=== PATIENT | male | born 1970 | race Caucasian/White ===

== ENCOUNTER 2021-09-11 20:00 | Inpatient (IN) | payer OTHER ==
[~2021-09-11] VITALS: Ht 177.8 cm; Wt 79.4 kg
--- NOTE | ~2021-09-11 | H ---
[facility] [place] [address] [place] [address] HISTORY AND PHYSICAL Name: JOSÉ MIGUEL DUNNE Room #: 150-1 ADM IN M.R.#: [id number] Admission: 09/11/21 Attend Phys: Castillo Solis MD, Discharge: Date of : 68 Report #: [id number] THIS REPORT FOR: cc: FAM - No family physician/PCP FAM - No family physician/PCP Castillo Solis MD [facility] ~ DATE OF SERVICE: 09/11/2021 HISTORY OF PRESENT ILLNESS: The patient is a 51-year-old male who was transferred here from [facility] Emergency Room with acute inferior wall myocardial infarction, STEMI. No prior cardiac history. He is a difficult historian, but from the records from [place] and actually talking to him initially, he had onset of about 6:30 of this discomfort while at rest. He has not had any prior history of cardiac disease. He has a strong family history with a brother and father with premature disease, and he is a smoker, a pack a day patient. MEDICATIONS: He is on Ambien, Caplyta 42 mg, fluoxetine 20, omeprazole, trazodone 100 b.i.d., Ventolin inhaler and Vistaril. ALLERGIES: No known drug allergies. PAST MEDICAL HISTORY: Positive for the schizoaffective disorder, posttraumatic stress disorder, chronic depression, reflux, rotator cuff repair, neck fusion and he had ECT therapy in the past. SOCIAL HISTORY: He is disabled. He is on Medicare, Medicaid. He stated a pack a day smoker. He has children. He is not . I believe he lives independently but we have limited history here. FAMILY HISTORY: Strongly positive including father and brother with premature infarcts. REVIEW OF SYSTEMS: Essentially negative as not able to obtain. PHYSICAL EXAMINATION: GENERAL: He was alert, still a moderate amount of distress, ST segment elevation. VITAL SIGNS: Pulse is 80, blood pressure 106/70. EYES: Xanthelasma. Pharynx is clear. NECK: Shows preserved upstrokes without JVD or bruits. LUNGS: Clear anteriorly. HEART: Regular rate and rhythm, S1, S2, distant. ABDOMEN: Slightly distended, nontender. EXTREMITIES: Reveal trace of edema. Distal pulses diminished. NEUROLOGIC: Nonfocal. [facility] [address] [place] [address] HISTORY AND PHYSICAL Name: JOSÉ MIGUEL DUNNE Room #: 150-1 ADM IN M.R.#: [id number] Admission: 09/11/21 Attend Phys: Castillo Solis MD, Discharge: Date of : 68 Report #: [id number] SKIN: Warm and dry without xanthoma or ulcer. MUSCULOSKELETAL: No gross joint deformity. Generalized arthritic changes. IMPRESSION: 1. Acute inferior wall myocardial infarction. 2. History of tobacco abuse. 3. Strong family history of premature coronary disease. 4. Schizoaffective disorder/depression/post-traumatic stress disorder. 5. Presumed chronic obstructive pulmonary disease on a current inhaler. RECOMMENDATIONS AND PLAN: Aspirin, Lipitor, heparin had been given in [facility], brought here by ambulance. Proceed emergently to the catheterization lab to delineate his anatomy. Risks, benefits and alternatives were discussed. No current family present. He sees a physician in [place], [place]. By: 52 25 Castillo Solis MD, FACC /nt
[2021-09-11 23:20] VITALS: BP 127/82
[2021-09-12] MEDS ORDERED: AMBIEN 10 MG TA10 MG PO (00:06)
[2021-09-12] MEDS ORDERED: CAPLYTA42 MG PO (00:07)
[2021-09-12] MEDS ORDERED: DESYREL300 MG PO (00:08)
[2021-09-12] MEDS ORDERED: PROZAC20 M1 PO (00:08)
[2021-09-12] MEDS ORDERED: OMEPRAZOLE 20 M20 M1 PO (00:08)
[2021-09-12] MEDS ORDERED: VENTOLIN HFA 1818 GM INH (00:09)
[2021-09-12] MEDS ORDERED: VISTARIL50 MG PO (00:09)
[2021-09-12] MEDS ORDERED: NEURONTIN 300M300 M2 PO (00:10)
[2021-09-12] MEDS ORDERED: TIZANIDINE HCL4 M2 PO (00:10)
[2021-09-12] MEDS ORDERED: LEVOTHYROXINE125 MC1 PO (00:11)
[2021-09-12 06:13] VITALS: BP 109/79
[2021-09-12 06:15] LABS: ABSOLUTE NEUTROPHILS 15.7 thou/uL (1.4-8.2); BASOPHILS 0.4 % (0.0-2.0); EOSINOPHILS 0.1 % (0.0-3.0); HEMATOCRIT 47.6 % (42.0-52.0); HEMOGLOBIN 15.4 gm/dL (14.0-18.0); LYMPHOCYTES 5.9 % (24.0-44.0); MCH 26.2 pg (26.0-34.0); MCHC 32.4 g/dL (28.0-37.0); MONOCYTES 4.5 % (1.0-8.0); PLATELET COUNT 199 thou/uL (150-400); POLYS 89.1 % (36.0-66.0); RBC 5.87 mil/uL (4.50-6.00); RDW 14.9 % (10.5-14.5); WBC 17.7 thou/uL (4.0-11.0)
[2021-09-12 06:52] LABS: CALCIUM 8.6 mg/dL (8.5-10.1); CREATININE 1.2 mg/dL (0.7-1.3); POTASSIUM 4.2 mmol/L (3.5-5.1)
--- NOTE | 2021-09-12 07:12 | EKG ---
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
[2021-09-12 08:42] LABS: CHOLESTEROL 223 mg/dL (<200); HDL CHOLESTEROL 38 mg/dL (>40); LDL CHOLESTEROL 136 mg/dL (<100); TC:HDL 5.9 Ratio (Not establshd); TRIGLYCERIDE 249 mg/dL (<150); VLDL 50 mg/dL (<40)
[2021-09-12 08:59] VITALS: BP 99/51
[2021-09-12] MEDS ORDERED: EFFIENT10 MG PO ×2 (09:10→20:51)
[2021-09-12] MEDS ORDERED: LIPITOR40 MG PO (09:10)
[2021-09-12] MEDS ORDERED: BAYER CHEWABLE81 MG PO (09:10)
[2021-09-12] MEDS ORDERED: METOPROLOL SUCC25 M1 PO (09:10)
--- NOTE | 2021-09-12 13:52 | 2DMMODE ---
[facility] [place] [address] [place] [address] 2 D/M-MODE ECHOCARDIOGRAM Name: JOSÉ MIGUEL DUNNE Room #: 218-P ADM IN M.R.#: [id number] Admission: 09/11/21 Attend Phys: Castillo Solis MD, Discharge: Date of : 68 Report #: [id number] THIS REPORT FOR: cc: DAYSI - Beatrice family physician/PCP FAM - No family physician/PCP Castillo Solis MD [facility] ~ APPROVED REPORT Study performed: 09/12/2021 10:51:53 EXAM: Comprehensive 2D, Doppler, and color-flow Echocardiogram Patient Location: Bedside Room #: 218 Status: routine BSA: 1.97 HR: 83 bpm BP: 99/51 mmHg Rhythm: NSR Other Information Study Quality: Adequate Indications STEMI s/p PCI Hx: COPD, HLP. 2D Dimensions IVSd: 9.44 (7-11mm) LVOT Diam: 21.06 (18-24mm) LVDd: 42.73 mm PWd: 7.71 (7-11mm) LVDs: 33.18 (25-40mm) Left Atrium: 32.96 (27-40mm) Aortic Root: 33.35 mm Volumes Left Atrial Volume (Systole) Single Plane 4CH: 29.02 mL Single Plane 2CH: 28.45 mL Aortic Valve AoV Peak Isak.: 1.14 m/s AO Peak Gr.: 5.17 mmHg LVOT Max P.05 mmHg LVOT Max V: 1.12 m/s CALVIN Vmax: 3.44 cm2 [facility] [address] [place] [address] 2 D/M-MODE ECHOCARDIOGRAM Name: JOSÉ MIGUEL DUNNE Room #: 218-P ADM IN M.R.#: [id number] Admission: 09/11/21 Attend Phys: Castillo Solis, Discharge: Date of : 68 Report #: [id number] Mitral Valve E/A Ratio: 0.9 MV Decel. Time: 230.82 ms MV E Max Isak.: 0.64 m/s MV A Isak.: 0.75 m/s MV PHT: 66.94 ms IVRT: 65.74 ms Pulmonary Vein P Vein S: 0.40 m/s P Vein A: 0.27 m/s P Vein D: 0.27 m/s P Vein A Dur.: 107.3 msec P Vein S/D Ratio: 1.48 Tricuspid Valve RAP Estimate: 8.00 mmHg Left Ventricle The left ventricle is normal size. There is normal left ventricular wall thickness. Left ventricular systolic function is low normal mild inf base hypo LVEF is 50-55% Mild diastolic dysfunction is present (impaired relaxation pattern). Right Ventricle The right ventricle is normal size. The right ventricular systolic function is normal. Atria The left atrium size is normal. The right atrium size is normal. Aortic Valve The aortic valve is not well visualized but appears grossly normal. No aortic regurgitation is present. There is no aortic valvular stenosis. Mitral Valve The mitral valve is normal in structure. Trace mitral regurgitation. No evidence of mitral valve stenosis. Tricuspid Valve The tricuspid valve is normal in structure. There is no tricuspid valve regurgitation noted. Unable to assess PA pressure. Pulmonic Valve Pulmonic valve is not well visualized. [facility] [address] [place] [address] 2 D/M-MODE ECHOCARDIOGRAM Name: JOSÉ MIGUEL DUNNE Room #: 218-P [facility] IN M.R.#: [id number] Admission: 09/11/21 Attend Phys: Castillo Solis, Discharge: Date of : 68 Report #: [id number] Great Vessels The aortic root is normal in size. Ascending aorta is not well visualized. IVC is normal in size and collapses <50% with inspiration. Pericardium There is no pericardial effusion. <Conclusion> The left ventricle is normal size. Left ventricular systolic function is low normal mild inf base hypo LVEF is 50-55% Mild diastolic dysfunction is present (impaired relaxation pattern). The right ventricle is normal size. The left atrium size is normal. The aortic valve is not well visualized but appears grossly normal. Trace mitral regurgitation. There is no tricuspid valve regurgitation noted. Unable to assess PA pressure. The aortic root is normal in size. There is no pericardial effusion. <ELECTRONICALLY SIGNED> By: Castillo Solis MD, FACC 09/12/21 135 51 51 Castillo Solis MD, FACC /INF
--- NOTE | 2021-09-12 15:45 | CATHLAB ---
[facility] [place] [address] [place] [address] INVASIVE PROCEDURE REPORT Name: JOSÉ MIGUEL DUNNE Room #: 218-P ADM IN M.R.#: [id number] Admission: 09/11/21 Attend Phys: Castillo Solis MD, Discharge: Date of : 68 Report #: [id number] THIS REPORT FOR: cc: FAM - No family physician/PCP FAM - No family physician/PCP Castillo Solis MD [facility] ~ APPROVED REPORT Study performed: 09/11/2021 20:56:59 Patient Details Patient Status: ED Room #: The patient is a 51 year-old male Event Personnel Castillo Solis Instrument Repairer Helper, Issa Nunn RN RN, Matilda Obando Monitor, Ledy Whitman RT(R)() Scrub Procedures Performed Art Access - R femoral artery* Left Heart Cath w/or w/o Coronaries [id number] [facility] Aortogram Abdominal Peripheral Angio 114231 PATRICIA Revasc AMI Total/Sub Single CIRC C9606 AMIREVSING 73194 Initial Mod Sed Same Phys/QHP Gr5y 704044 60536 Initial Mod Sed Same Phys/QHP Gr5y 629546 08673 Mod Sed Same Phys/QHP Ea 956326 Hemostasis w/ Mynx Indication Chest pain Procedure Narrative The Right Groin^ was infiltrated with 1% Lidocaine subcutaneous anesthesia. A PINNACLE 6FR Sheath #[id number] sheath was inserted into the RFA 6F^. Coronary angiography was performed using coronary diagnostic catheters. The right coronary system was accessed and visualized with a JR4 catheter. The left coronary system was accessed and visualized with a JL4 catheter. The left ventricle was accessed and visualized with a STR PIG catheter. There was no hematoma. Intraoperative Conscious Sedation Sedation start time: 2101 Case end Time: 2209 Fentanyl 50 mcg Versed 1 mg [facility] [place] [address] INVASIVE PROCEDURE REPORT Name: JOSÉ MIGUEL DUNNE Room #: 218-P [facility] IN ..#: [id number] Admission: 09/11/21 Attend Phys: Castillo Solis, Discharge: Date of : 68 Report #: [id number] Fluoro Time: 5.09 minutes Dose: DAP 5243.60 cGycm2 605 mGy Contrast Type and Amount: Visipaque 167 ml Hemodynamics The aortic pressure is 125/76 mmHg with a mean of 104 mmHg. The left ventricular pressure is 137/11 mmHg with a mean of mmHg. The left ventricular end diastolic pressure is 17 mmHg. PCI Technique Lesion Percutaneous coronary intervention was performed on the proximal right coronary artery. A LAUNCHER 6FR JR 4 90CM #[id number] Guide Catheter was used to engage the RCA ostium. A Luge Wire .014 x 182CM #[id number] Interventional Guidewire was used to cross the lesion. BALLOON DILATION A Balloon catheter Sprinter OTW 3.0 x 15 #[id number] was inserted and inflated up to 8.00atm for 13seconds. Additional Inflation: 12.00atm for 12seconds. Additional Inflation: 15.00atm for 9seconds. STENT DEPLOYMENT A stent RESOLUTE ESSIE OTW 3.5 X 30 #[id number] was inserted and inflated up to 16.00atm for 27seconds. Conclusion #1 Successful PTCA stent of an acute infarct vessel dominant right coronary artery with placement of a 3.5 x 30 resolute Lincoln postdilated 3.7 mm YAMILE grade III flow. Significant thrombus load initially which resolved. Significant bradycardic heart block response which also resolved. PDA SAM preserved #2 left main mildly disease giving rise to LAD and circumflex. #3 LAD is moderate proximal calcification mild to moderate irregularity proximal and mid vessel. 60 to 70% proximal mid vessel lesion with a more preserved distal vessel around the apex. #4 a high rising diagonal branch is subtotally occluded with some collateral filling to a distal bag this appears to be more chronic #5 nondominant circumflex eccentric 50 to 60% focal lesion mild disease in a moderate size OM branch. The circumflex is small in the AV groove. Left system is providing collateral filling to the occluded right coronary artery PDA SAM system faintly. #6 normal left jugular size with subtle inferior wall leg EF 55% #7 abdominal aorta is mildly ectatic but no aneurysm formation brisk flow. Recommendations and plan: Continue aggressive risk factor [facility] [address] [place] [address] INVASIVE PROCEDURE REPORT Name: JOSÉ MIGUEL DUNNE Room #: 218-P ADM IN M.R.#: [id number] Admission: 09/11/21 Attend Phys: Castillo Solis, Discharge: Date of : 68 Report #: [id number] modification. Significant bradycardic conduction system response to the opening of the occluded right has resolved. Hemodynamically stable transfer to CCU to follow post coronary stent protocol Integrilin drip to continue. <ELECTRONICALLY SIGNED> By: Castillo Solis MD, FACC 09/12/21 1545 1545 1545 Castillo Solis MD, FACC /INF
--- NOTE | 2021-09-12 18:11 | NUR ---
ASSESSMENT CHARTED. PT ALERT AND ORIENTED. VSS. DENIED HAVING PAIN OR DISCOMFORT. RIGHT GROIN INCISION C/D/I. NO HEMATOMA NOTED. PT HAD [address] CAMARA NOTIFIED. NEW ORDERS RECEIVED. NO CONCERNS AT THIS TIME.
[2021-09-12 20:11] VITALS: BP 105/74
[2021-09-12] MEDS ORDERED: ROSUVASTATIN CAL5 MG PO (20:45)
[2021-09-12] MEDS ORDERED: SYNTHROID75 MC1 PO (20:51)
[2021-09-13 00:50] VITALS: BP 101/73
[2021-09-13 04:08] LABS: CALCIUM 8.6 mg/dL (8.5-10.1); MAGNESIUM 1.8 mg/dL (1.8-2.4); POTASSIUM 3.6 mmol/L (3.5-5.1)
[2021-09-13 04:48] VITALS: BP 118/84
[2021-09-13] MEDS ORDERED: AMBIEN 10 MG TA10 MG PO (07:32)
[2021-09-13] MEDS ORDERED: CAPLYTA42 MG PO (07:33)
[2021-09-13] MEDS ORDERED: PROZAC10 M1 PO (07:34)
[2021-09-13] MEDS ORDERED: OMEPRAZOLE 20 M20 M1 PO (07:35)
[2021-09-13] MEDS ORDERED: DESYREL150 MG PO (07:36)
[2021-09-13] MEDS ORDERED: VENTOLIN HFA 1818 GM INH (07:37)
[2021-09-13] MEDS ORDERED: VISTARIL50 MG PO (07:38)
[2021-09-13 08:00] VITALS: BP 1047/74
[2021-09-13] MEDS ORDERED: AMIODARONE HCL400 MG PO (08:57)
[2021-09-13] MEDS ORDERED: METOPROLOL SUCC25 M1 PO (09:07)
[2021-09-13 10:20] VITALS: BP 118/84
--- NOTE | 2021-09-13 10:53 | NUR ---
ASSESSMENT CHARTED - MEDS PER MELE - REBA DIET AND FLUIDS. UP AD TRE IN ROOM - GROIN S/D/I. PT HOME THIS AM - INSTRUCTION RE HOME MEDS/ CARE AND FOLLOW UP GIVEN TO PATIENT. STATED UNDERSTANDING OF INSTRUCTION GIVEN. HOME VIA PVT VEHICLE ACCOMPANIED BY NEPHEW. NO CO'SATTIME OF D/C.
[2021-09-15] MEDS ORDERED: EFFIENT10 MG PO (16:14)
[2021-09-15] MEDS ORDERED: ROSUVASTATIN CAL5 MG PO (16:17)
[2021-09-15] MEDS ORDERED: AMIODARONE HCL400 MG PO (16:17)
== END 2021-09-13 10:56 | disposition home or self-care (01) | DRG 247 ==
LOC: 2N 20:00 → TBA 21:03 → 2N 23:13
PROVIDERS: Nurse Practitioner Adult Health; ADMIT Internal Medicine Cardiovascular Disease; ATTEND Internal Medicine Cardiovascular Disease
PROC: B211YZZ Fluoroscopy of Multiple Coronary Arteries using Other Contrast (ICD-10-PCS; principal; 2021-09-11)
PROC: B410YZZ Fluoroscopy of Abdominal Aorta using Other Contrast (ICD-10-PCS; principal; 2021-09-11)
PROC: 027034Z Dilation of Coronary Artery, One Artery with Drug-eluting Intraluminal Device, Percutaneous Approach (ICD-10-PCS; principal; 2021-09-11)
PROC: 4A023N7 Measurement of Cardiac Sampling and Pressure, Left Heart, Percutaneous Approach (ICD-10-PCS; principal; 2021-09-11)
PROC: B215YZZ Fluoroscopy of Left Heart using Other Contrast (ICD-10-PCS; principal; 2021-09-11)
DX: I21.19 ST elevation (STEMI) myocardial infarction involving other coronary artery of inferior wall (principal); K21.9 Gastro-esophageal reflux disease without esophagitis; F32.9 Major depressive disorder, single episode, unspecified; F25.9 Schizoaffective disorder, unspecified; F43.10 Post-traumatic stress disorder, unspecified; J44.9 Chronic obstructive pulmonary disease, unspecified; F41.9 Anxiety disorder, unspecified; Z71.6 Tobacco abuse counseling; Z79.82 Long term (current) use of aspirin; Z82.49 Family history of ischemic heart disease and other diseases of the circulatory system; Z79.899 Other long term (current) drug therapy; Z28.21 Immunization not carried out because of patient refusal
CPT/HCPCS: 10081

== ENCOUNTER → 2021-09-29 | Outpatient (CLI) | payer OTHER ==
[~2021-09-29] MED LIST: AMBIEN 10 MG TA10 MG PO; AMIODARONE HCL400 MG PO; BAYER CHEWABLE81 MG PO; CAPLYTA42 MG PO; DESYREL150 MG PO; DESYREL300 MG PO; EFFIENT10 MG PO; LEVOTHYROXINE125 MC1 PO; LIPITOR40 MG PO; METOPROLOL SUCC25 M1 PO; NEURONTIN 300M300 M2 PO; OMEPRAZOLE 20 M20 M1 PO; PROZAC10 M1 PO; PROZAC20 M1 PO; ROSUVASTATIN CAL5 MG PO; SYNTHROID75 MC1 PO; TIZANIDINE HCL4 M2 PO; VENTOLIN HFA 1818 GM INH; VISTARIL50 MG PO
== END ==
LOC: SJCVC 16:51
PROVIDERS: ATTEND Internal Medicine Cardiovascular Disease
DX: R94.31 Abnormal electrocardiogram [ECG] [EKG] (principal); I25.10 Atherosclerotic heart disease of native coronary artery without angina pectoris; I10 Essential (primary) hypertension; I21.11 ST elevation (STEMI) myocardial infarction involving right coronary artery; J44.9 Chronic obstructive pulmonary disease, unspecified; E78.00 Pure hypercholesterolemia, unspecified; Z72.0 Tobacco use; Z82.49 Family history of ischemic heart disease and other diseases of the circulatory system; Z95.5 Presence of coronary angioplasty implant and graft; Z88.8 Allergy status to other drugs, medicaments and biological substances; Z79.82 Long term (current) use of aspirin; Z79.899 Other long term (current) drug therapy